=== PATIENT | male | born 1960 | race Caucasian/White ===

== ENCOUNTER 2016-09-27 12:34 | Emergency (ER) | payer MEDICAID ==
[2016-09-27 12:35] VITALS: BMI 32.5
[2016-09-27 12:44] VITALS: BP 152/90; PULSE 56; RESP 18; TEMP 98.5; O2SAT 98
--- NOTE | 2016-09-27 13:34 | C.PDOC ---
History Of Present Illness 56 y/o male presents to the ED with complains of chronic lower back pain x5 days. Pt denies recent trauma. No saddle anesthesia, bowel or bladder dysfunction or any other complaints. Chief Complaint (Nursing): Back Pain History Per: Patient History/Exam Limitations: no limitations Onset/Duration Of Symptoms: Days Current Symptoms Are (Timing): Still Present Quality Of Discomfort: "Pain" Severity: Moderate Previous Symptoms: Back Pain, Chronic Pain Associated Symptoms: None Recent travel outside of the [place]: No Past Medical History Reviewed: Historical Data, Nursing Documentation, Vital Signs Vital Signs: Last Vital Signs Temp 98.5 F 09/27/16 12:43 Pulse 56 L 09/27/16 12:43 Resp 18 09/27/16 12:43 BP 152/90 H 09/27/16 12:43 Pulse Ox 98 09/27/16 14:59 - Medical History PMH: CHF, Gall Bladder Disease (GALLSTONES CHOLECYSTECTOMY), HIV, HTN, Hypercholesterolemia, Kidney Stones, Peripheral Edema, Rheumatoid Arthritis Surgical History: Coronary Stent - [facility] Procedures LAPAROSCOP LYSIS-PERITONEAL ADHES (09/23/13) LAPAROSCOPIC CHOLECYSTECTOMY (09/23/13) Family History: States: Unknown Family Hx - Social History Hx Tobacco Use: No Hx Alcohol Use: No Hx Substance Use: No - Immunization History Hx Tetanus Toxoid Vaccination: No Hx Influenza Vaccination: Yes Hx Pneumococcal Vaccination: Yes Review Of Systems Except As Marked, All Systems Reviewed And Found Negative. Constitutional: Negative for: Fever Genitourinary: Negative for: Incontinence Musculoskeletal: Positive for: Back Pain Neurological: Negative for: Weakness, Numbness Physical Exam - Physical Exam Appears: Non-toxic, No Acute Distress Skin: Warm, Dry, No Rash Head: Atraumatic, Normacephalic Neck: Normal, Normal ROM, Supple Cardiovascular: Rhythm Regular, No Murmur Respiratory: Normal Breath Sounds, No Rales, No Rhonchi, No Wheezing Back: Normal Inspection, No Vertebral Tenderness Extremity: Normal ROM Extremity: Bilateral: Atraumatic Neurological/Psych: Oriented x3, Normal Speech, Normal Motor, Normal Sensation ED Course And Treatment O2 Sat by Pulse Oximetry: 98 (room air) Pulse Ox Interpretation: Normal Progress Note: [place]. Pt with multiple Rx for narcotics. Advised patient to follow up with PMD or pain management for Rx medications. Disposition - Disposition Referrals: [facility] [Outside] [facility] [Outside] Disposition: HOME/ ROUTINE Disposition Time: 13:30 Condition: GOOD Additional Instructions: Thank you for letting us take care of you today. Your provider was Dr. Dave. You were treated for chronic back pain. The emergency medical care you received today was directed at your acute symptoms. If you were prescribed any medication, please fill it and take as directed. It may take several days for your symptoms to resolve. Return to the Emergency Department if your symptoms worsen, do not improve, or if you have any other problems. Please contact your doctor or call one of the physicians/clinics you have been referred to that are listed on the Patient Visit Information form that is included in your discharge packet. Bring any paperwork you were given at discharge with you along with any medications you are taking to your follow up visit. Our treatment cannot replace ongoing medical care by a primary care provider (PCP) outside of the emergency department. Thank you for allowing the [facility] team to be part of your care today. PLEASE FOLLOW UP WITH YOUR PAIN MANAGEMENT DOCTOR OR OUR CLINIC FOR OUTPATIENT CARE. PRESCRIPTIONS FOR CHRONIC PAIN CANNOT COME FROM THE EMERGENCY ROOM. Instructions: Chronic Back Pain (ED) - Clinical Impression Clinical Impression: Chronic back pain - Scribe Statement The provider has reviewed the documentation as recorded by the Adriana Mejia Provider Attestation: All medical record entries made by the Adriana were at my direction and personally dictated by me. I have reviewed the chart and agree that the record accurately reflects my personal performance of the history, physical exam, medical decision making, and the department course for this patient. I have also personally directed, reviewed, and agree with the discharge instructions and disposition.
[2016-09-27] MEDS ORDERED: oxyCODONE 5 mg Immediate Release Tab PO STA (13:37)
[2016-09-27] MEDS ORDERED: oxyCODONE 5 mg Immediate Release Tab ONE (13:44)
== END 2016-09-27 14:05 | disposition home or self-care (01) ==
LOC: C.ER 12:34
DX: G89.29 Other chronic pain (principal); M54.9 Dorsalgia, unspecified

== ENCOUNTER 2017-05-31 20:23 | Emergency (ER) | payer OTHER, MEDICAID ==
[2017-05-31 20:23] VITALS: BMI 32.5
[2017-05-31 20:54] VITALS: BP 162/85; RESP 20
[2017-05-31] MEDS ORDERED: Oxycodone/Acetaminophen 5/325 mg Tab PO STA (21:40)
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
[2017-05-31] MEDS ORDERED: Oxycodone/Acetaminophen 5/325 mg Tab ONE (21:48)
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
[2017-05-31 23:18] VITALS: PULSE 84; TEMP 98
[2017-06-03 08:04] VITALS: O2SAT 100
== END 2017-05-31 23:17 | disposition home or self-care (01) ==
LOC: C.ER 20:23
DX: S62.232A Other displaced fracture of base of first metacarpal bone, left hand, initial encounter for closed fracture (principal); S39.012A Strain of muscle, fascia and tendon of lower back, initial encounter; V89.2XXA Person injured in unspecified motor-vehicle accident, traffic, initial encounter